=== PATIENT | male | born 1955 | race Caucasian/White ===

== ENCOUNTER 2018-05-24 12:59 | Outpatient (CLI) | payer BC ==
--- NOTE | 2018-05-24 14:39 | ULT ---
BILATERAL CAROTID DUPLEX ULTRASOUND WITH COLOR AND SPECTRAL DOPPLER IMAGING. HISTORY: Tia. FINDINGS: Minimal plaque in the distal right CCA with tortuosity of the right ICA. PSV right ICA 80 cm/s, EDV 25 cm/s. ICA/CCA ratio is 0.9. PSV left ICA 72 cm/s, EDV 28 cm/s. ICA/CCA ratio 0.7. Vertebral flow is antegrade. IMPRESSION: No hemodynamically significant stenosis. Minimal visual plaque and right internal carotid tortuosity , evidence for carotid artery arteriovascular disease. POS: [facility]
== END 2018-05-24 13:00 | disposition home or self-care (01) ==
LOC: SCSULT 12:59
PROVIDERS: ATTEND Family Medicine
DX: G45.9 Transient cerebral ischemic attack, unspecified (principal); I65.21 Occlusion and stenosis of right carotid artery; I77.89 Other specified disorders of arteries and arterioles
CPT/HCPCS: 93880

== ENCOUNTER 2024-01-02 12:30 | Outpatient (CLI) | payer MEDICARE | END 2024-01-02 12:31 | disposition home or self-care (01) | LOC: PET 12:30 | PROVIDERS: ATTEND Internal Medicine Hematology & Oncology | DX: C61 Malignant neoplasm of prostate (principal); R97.20 Elevated prostate specific antigen [PSA] | CPT/HCPCS: 78815; A9552; A9595 ==

== ENCOUNTER 2024-10-25 11:16 | Outpatient (CLI) | payer MEDICARE | END 2024-10-25 11:17 | disposition home or self-care (01) | LOC: PET 11:16 | PROVIDERS: ATTEND Internal Medicine Hematology & Oncology | DX: C61 Malignant neoplasm of prostate (principal) | CPT/HCPCS: 78815; A9595 ==